=== PATIENT | female | born 1985 | race Caucasian/White ===

== ENCOUNTER → 2018-03-18 | Outpatient (CLI) | payer BC ==
[~2018-03-18] MED LIST: Acetaminophen PO; Benzocaine 60 ML TP; Ibuprofen PO; Lanolin TP; PREN-127 PO; TUCKS TP
[2018-03-18 10:39] LABS: PLATELET COUNT, AUTOMATED 226 K/uL (150-450)
== END ==
LOC: LAB 09:04
PROVIDERS: ATTEND Obstetrics & Gynecology
DX: Z34.91 Encounter for supervision of normal pregnancy, unspecified, first trimester (principal)
CPT/HCPCS: 36415; 81001; 85025; 86592; 86703; 86762; 86850; 86900; 86901; 87088; 87340

== ENCOUNTER → 2018-04-15 | Outpatient (CLI) | payer BC | LOC: LAB 14:50 | PROVIDERS: ATTEND Obstetrics & Gynecology | DX: Z34.91 Encounter for supervision of normal pregnancy, unspecified, first trimester (principal); Z11.3 Encounter for screening for infections with a predominantly sexual mode of transmission | CPT/HCPCS: 87491; 87591 ==

== ENCOUNTER → 2018-05-18 | Outpatient (CLI) | payer BC | LOC: LAB 13:50 | PROVIDERS: ATTEND Obstetrics & Gynecology | DX: R33.9 Retention of urine, unspecified (principal) | CPT/HCPCS: 81001; 87088 ==

== ENCOUNTER → 2018-07-04 | Outpatient (CLI) | payer BC ==
[~2018-07-04] MED LIST changes: +FLU60SYR36 IM
--- NOTE | 2018-07-04 13:13 | RADIOLOGY IMAGING REPORT ---
FACILITY: [facility] PATIENT NAME: Vanda Jackson : 1985 MR: [id number] V: [id number] EXAM DATE: ORDERING PHYSICIAN: DINAE BETTENCOURT TECHNOLOGIST: Location: [facility] [place] Patient: Vanda Jackson : 1985 Visit/Account:[id number] Date of Sevice: 07/04/2018 [facility] OB ANATOMICAL SURVEY HISTORY: anatomical [facility] OB ANATOMICAL SURVEY COMPARISON: None FINDINGS: Intrauterine gestations: 1 presentation: Vertex heart rate: 139 bpm Amniotic fluid volume: MATTIE 14.4 cm; Largest amniotic fluid pocket 4.3 cm Placenta: Fundal/anterior No placenta previa or retroplacental hemorrhage. Uterus: Gravid, otherwise normal Maternal adnexa: Negative Cervix: 4.1. Closed Gestational Parameters: BPD: 4.9 cm; 20 weeks/ 6 days HC: 18.1 cm; 20 weeks/ 4 days AC: 15.8 cm; 21 weeks/ 0 days FL: 3.2 cm; 20 weeks/ 0 days Average ultrasound age (AUA): 20 weeks/ 5 days Estimated weight (EFW): 358 grams +/- 53 grams. 41st percentile by LMP Anatomic Survey: Intracranial structures, 4-chamber heart, stomach, kidneys, urinary bladder, spine, 3-vessel cord and cord insertion are unremarkable. Two upper and two lower extremities visualized. IMPRESSION: IUP of 20 weeks five days. JAMEEL of 11/16/2018.. This correlates well with the LMP JAMEEL of 11/17/2018 Report Dictated By: Aj Wilde MD at 07/04/2018 1:04 PM Report E-Signed By: Aj Wilde MD at 07/04/2018 1:08 PM WSN:[email or web address]
== END ==
LOC: RAD 09:44
PROVIDERS: ATTEND Obstetrics & Gynecology
DX: Z34.02 Encounter for supervision of normal first pregnancy, second trimester (principal)

== ENCOUNTER → 2018-07-09 | Outpatient (CLI) | payer BC ==
[~2018-07-09] MED LIST changes: +HYDR30CR10 TP; +METH4TAB66 PO
== END ==
LOC: LAB 07-08 16:49
PROVIDERS: ATTEND Student in an Organized Health Care Education/Training Program
DX: Z34.90 Encounter for supervision of normal pregnancy, unspecified, unspecified trimester (principal); L29.9 Pruritus, unspecified; R21 Rash and other nonspecific skin eruption
CPT/HCPCS: 36415; 82040; 82239; 82247; 82310; 82374; 82435; 82565; 82947; 84075; 84132; 84155; 84295; 84450; 84460; 84520; 85027

== ENCOUNTER → 2018-08-25 | Outpatient (CLI) | payer BC ==
[2018-08-25 12:00] LABS: PLATELET COUNT, AUTOMATED 219 K/uL (150-450)
== END ==
LOC: LAB 10:59
PROVIDERS: ATTEND Student in an Organized Health Care Education/Training Program
DX: Z34.92 Encounter for supervision of normal pregnancy, unspecified, second trimester (principal)
CPT/HCPCS: 36415; 82950; 85025

== ENCOUNTER → 2018-09-09 | Outpatient (CLI) | payer BC | LOC: LAB 13:37 | PROVIDERS: ATTEND Advanced Practice Midwife | DX: Z20.828 Contact with and (suspected) exposure to other viral communicable diseases (principal) | CPT/HCPCS: 87502 ==

== ENCOUNTER → 2018-10-12 | Outpatient (CLI) | payer BC ==
[~2018-10-12] MED LIST changes: +DIPH0.5D12 IM
--- NOTE | 2018-10-12 14:09 | RADIOLOGY IMAGING REPORT ---
FACILITY: [facility] PATIENT NAME: Vanda Jackson : 1985 MR: [id number] V: [id number] EXAM DATE: ORDERING PHYSICIAN: DIANE BETTENCOURT TECHNOLOGIST: Location: [facility] Patient: Vanda Jackson : 1985 Visit/Account:[id number] Date of Sevice: 10/12/2018 EXAMINATION: Ultrasound transabdominal OB HISTORY: Size date discrepancy COMPARISON: July 04, 2018 TECHNIQUE: Transabdominal imaging was performed for assessment of the fetus and maternal pelvic structures. T ransvaginal imaging was not performed. FINDINGS: Placenta: Fundal and anterior without previa. Uterus: Gravid, otherwise normal Cervix: Not evaluated Maternal Ovaries: Not evaluated Maternal and other adnexa findings: Not evaluated Intrauterine gestations: One. presentation: Cephalic heart rate: at 117 bpm Amniotic fluid index: 10.89 cm Largest amniotic fluid pocket: 3.94 cm Gestational Parameters: BPD: 8.63 cm 34 weeks/ six days, 51% HC: 31.02 cm 34 weeks/ five days, 14% AC: 30.17 cm 34 weeks/ one days, 35% FL: 6.65 cm 34 weeks/ two days, 26% Average ultrasound age (AUA): 34 weeks/four days, JAMEEL 11/19/2018 Estimated gestational age by JAMEEL: 34 weeks/six days, JAMEEL 11/17/2018 Estimated weight (EFW): 2392 grams +/- 350 grams EFW for JAMEEL: 30 percentile The SD ratios of the umbilical cord ranged between 2.5 and 2.8 Anatomic Survey: Anatomic survey not performed IMPRESSION: Single viable fetus in cephalic presentation with an estimated gestational age by measur ements of 34 weeks and four days. Estimated gestational age by LMP is 34 weeks and six days. Report Dictated By: Adri Matias MD at 10/12/2018 1:55 PM Report E-Signed By: Adri Matias MD at 10/12/2018 2:04 PM WSN:[email or web address]
== END ==
LOC: RAD 12:55
PROVIDERS: ATTEND Obstetrics & Gynecology
DX: Z02.9 Encounter for administrative examinations, unspecified (principal)

== ENCOUNTER → 2018-10-25 | Outpatient (CLI) | payer BC | LOC: LAB 08:14 | PROVIDERS: ATTEND Advanced Practice Midwife | DX: Z36.85 Encounter for antenatal screening for Streptococcus B (principal) | CPT/HCPCS: 87081 ==

== ENCOUNTER → 2018-10-27 | Outpatient (CLI) | payer BC | LOC: LAB 10:51 | PROVIDERS: ATTEND Obstetrics & Gynecology | DX: Z34.93 Encounter for supervision of normal pregnancy, unspecified, third trimester (principal); L29.9 Pruritus, unspecified | CPT/HCPCS: 36415; 82040; 82239; 82247; 82310; 82374; 82435; 82565; 82947; 84075; 84132; 84155; 84295; 84450; 84460; 84520 ==

== ENCOUNTER → 2018-11-03 | Outpatient (CLI) | payer BC ==
--- NOTE | 2018-11-03 11:37 | RADIOLOGY IMAGING REPORT ---
FACILITY: [facility] [place] PATIENT NAME: Vanda Jackson : 1985 MR: [id number] V: [id number] EXAM DATE: ORDERING PHYSICIAN: DIANE BETTENCOURT TECHNOLOGIST: Location: [facility] Patient: Vanda Jackson : 1985 Visit/Account:[id number] Date of Sevice: 11/03/2018 OB LIMITED HISTORY: Size less than dates, eval MATTIE and EFW COMPARISON: 10/12/2018 FINDINGS: Intrauterine gestations: 1 presentation: Vertex heart rate: 129 bpm Amniotic fluid volume: MATTIE 14.9 cm; Largest amniotic fluid pocket 5.8 cm Placenta: Anterior fundal No placenta previa or retroplacental hemorrhage. Uterus: Gravid, otherwise normal Maternal adnexa: Negative Cervix: Closed Gestational Parameters: BPD: 9.2 cm; 37 weeks/ 1 days/50th percentile HC: 33.4 cm; 38 weeks/ 2 days/34th percentile AC: 31.3 cm; 35 weeks/ 2 days/5th percentile FL: 6.9 cm; 35 weeks/ 3 days/4th percentile Average ultrasound age (AUA): 36 weeks/ 4 days . Estimated weight (EFW): 2759 grams +/- 403 grams Fetus is in the 12th percentile based on LMP IMPRESSION: IUP of 36 weeks four days. JAMEEL of 11/27/2018. This is eight days behind the previous ultrasound JAMEEL c alculated at 11/19/2018 on the previous examination. Report Dictated By: Aj Wilde MD at 11/03/2018 11:25 AM Report E-Signed By: Aj Wilde MD at 11/03/2018 11:32 AM WSN:LEDY
== END ==
LOC: US 09:15
PROVIDERS: ATTEND Obstetrics & Gynecology
DX: O26.843 Uterine size-date discrepancy, third trimester (principal); Z3A.36 36 weeks gestation of pregnancy
CPT/HCPCS: 76815

== ENCOUNTER 2018-11-09 07:06 | Inpatient (IN) | payer BC ==
[~2018-11-09] VITALS: Ht 165.1 cm; Wt 67.1 kg
[~2018-11-09 07:06] MED LIST changes: -DIPH0.5D12 IM; +DIPH0.5S2 IM
[2018-11-09] MEDS ORDERED: FAMOTIDINE(*) 20MG/50ML PREMIX 50 ML IVPB PRN (07:17)
[2018-11-09] MEDS ORDERED: OXYTOCIN 30 UNIT/D5LR 500 ML 500 ML IV PRN (07:17)
[2018-11-09] MEDS ORDERED: DLR(*) 1000 ML BAG 1,000 ML IV SCH (07:17)
[2018-11-09] MEDS ORDERED: ceFAZolin(*) 2GM/D5W 50ML 50 ML IVPB PRN (07:17)
[2018-11-09] MEDS ORDERED: LR(*) 1000 ML BAG 1,000 ML IV PRN (07:17)
[2018-11-09] MEDS ORDERED: fentaNYL CITR 100 MCG/2 ML AMP IVP PRN (07:20)
[2018-11-09] MEDS ORDERED: LIDOCAINE 1% LOCAL 300 MG/30ML INJ PRN (07:20)
[2018-11-09] MEDS ORDERED: FLUSH 10 ML SYR IVP PRN (07:20)
[2018-11-09] MEDS ORDERED: LIDOCAINE/SOD BICARB 8.4% SYR SC PRN (07:20)
[2018-11-09] MEDS ORDERED: TERBUTALINE SULF 1 MG/ML VIAL SUBQ PRN (07:20)
[2018-11-09] MEDS ORDERED: METOCLOPRAMIDE 10 MG/2 ML SDV IVP PRN (07:20)
[2018-11-09 08:40] LABS: PLATELET COUNT, AUTOMATED 206 K/uL (150-450)
--- NOTE | 2018-11-09 09:01 | History & Physical ---
History of Present Illness Age of Patient: 33 : 3 Para or TPAL: 1 EDC per LMP: Nov 19, 2018 Chief Complaint Pt is a 33 Year old @ 38 6/7 by LMP and first trimester US with an JAMEEL of 11/19/18 here today for IOL for SGA fetus at 12%tile. She has had an uncomplicated thus far. She has been having contractions on and off for the past few weeks but this am they have become stronger and more regular. She reports good movement, no LOF or VB, but has noticed some bloody show since the cervical check in clinic on Wednesday. She denies LOCO, vision changes, or RUQ pain. Her Bandar is here and will be her support person. She plans for an unmedicated . History Patient's Blood Type: O Positive Rubella Status: Immune Group B Strep Screen: Negative Allergies: Coded Allergies: amoxicillin (Verified Allergy, Intermediate, 03/18/18) clavulanic acid (Verified Allergy, Intermediate, 03/18/18) cefaclor (Unverified Allergy, Unknown, unknown, 05/29/14) Social History: Denies ETOH, tobacco, or illicit drug use including marijuana Family History: Blood clots FATHER FH: Mgusa-Jaoritcty-Cvjrr syndrome BROTHER OR SISTER FH: asthma FATHER FH: cancer FATHER (liver) BROTHER OR SISTER (colon) FH: diabetes mellitus FATHER FH: hypertension FATHER Ulcerative colitis MOTHER Med Rec Home Meds Active Scripts Methylprednisolone (METHYLPREDNISOLONE) 4 Mg Tab.ds.pk, 4 MG PO DIRECTED, #1 PACK Prov:DIANE BETTENCOURT MD 07/29/18 Hydrocortisone 2.5 % 30 GM CREAM (Hydrocortisone 2.5 % 30 GM CREAM) 2.5 % Cream.appl, 30 GM TP BID for 15 Days, #1 GM 1 Refill Prov:DUSTIN RO DO 07/08/18 Reported Medications Vits W-Ca,Fe,Fa(<1MG) ( VITAMINS) Unknown Strength Tablet, PO DAILY, TAB 03/18/18 Review of Systems Constitutional: No Fever Neurological: No Syncope, No Dizziness Eyes: No Vision Change Cardiovascular: No Chest Pain Respiratory: No Shortness of Breath Gastrointestinal: No Nausea, No Vomiting, No Diarrhea, No Constipation Genitourinary: No Dysuria Musculoskeletal: Pain (mild uterine cramping) Psychiatric: No Depression, No Anxiety Exam General Exam Neuro: No Gross deficits; No Headache Eyes: Normal Extraocular Movement & Vison ENT: Normal Cardiovascular: Regular Rate and Rhythm Respiratory: No Respiratory Distress Abdomen: Gravid - Non-Tender, RUQ Non-Tender : Normal Musculoskeletal: No Weakness/Pain Extremities: No Cyanosis,Clubbing or Edema Integumentary: Skin Intact without Lesions or Rash Psychological: Alert & Oriented X3 Vaginal Discharge/Fluid?: Bloody Show Cervical Dialation: 2 Cervical Effacement (%): 70 Cervical Consistency: Moderate Cervical Position: Mid Station: 0 Presentation: Vertex Uterine Contractions(Q min): 4 Uterine Contraction Strength: Mild UC Resting Tone: Soft Fetus Feeling Movement?: Yes Estimated Weight(grams): 3000 Heart Tones: 125 Heart Tone Variabilty: Moderate FHT Accelerations: 15X15 FHT Decelerations: None Medical Decision Making Data Points Result Diagram: 11/09/18 0810 Assessment and Plan Hospital Day: 1 DAMAGE APPRAISER Assessment: Stable DAMAGE APPRAISER Plan: Routine Labor/Induct Care Problems: (1) Encounter for induction of labor Onset Date: ~ 11/09/2018 Status: Acute Assessment & Plan: SW is a 33 y.o. [id number] 38w06 wks with an Estimated Date of Delivery: 11/19/18 dated by LMP and first trimester US Labor state: IOL for SGA fetus at 12%tile, Discussed plan for induction with the CRB and low dose Pitocin. We reviewed the R/B/A and pt desires to continue to plan. [place] score is 7. Plan for CRB insertion with 80cc uterine balloon and 80cc vaginal balloon and then placed to tension on leg. Nurse instructed to place additional tension every hour and then replace to leg. Pitocin 2mu will be titrated every 30 minutes up to 14 mu per hour where it will remain until the CRB has fallen out. At that time we will consider AROM if needed for labor progression. Encouraged pt to use upright and ambulation positions to facilitate descent. well-being: Category I FHT: continuous monitoring for induction, as well as SGA fetus Maternal well-being: VSS, normotensive, afebrile, membranes presumed intact. PNL: GBS Neg, Type/Rh O+, rubella immune Pain Management: Plans for an unmedicated , considering tub if not able to tolerate pain Feed: Breast/ boy PPBCM: c/b: * SGA fetus 12%tile Anticipate labor progression, re-evaluate in 2-3 hours or prn (2) SGA (small for gestational age) Onset Date: ~ 11/03/2018 Status: Acute Assessment & Plan: IOL for planned for today ADOLPH SOTO CNM Nov 09, 2018 09:01
[2018-11-09] MEDS ORDERED: DIPH-740 PO (10:22)
[2018-11-09] MEDS ORDERED: ACET-1966 PO (10:23)
[2018-11-09 10:35] VITALS: BP 115/79; Ht 165.1 cm; Wt 67.1 kg
--- NOTE | 2018-11-09 12:26 | Labor Progress Note ---
Labor Subjective Progress Notes Subjective Pt is starting to feel more pressure in her pelvis and some lower back pain. She is tolerating the contractions well. She denies LOCO, vision changes, and RUQ pain. at bedside. Planning on walking in the [place] now. Feeling Movement?: Yes Vaginal Discharge/Fluid: Bloody Show, Clear Fluid, Moderate Amount Labor Pain: Moderate Neurological: No Headache Eyes: No Visual Disturbances Labor Objective Vital Signs Vital Signs Date Time Temp Pulse Resp B/P (MAP) Pulse Ox O2 Delivery O2 Flow Rate FiO2 11/09/18 10:35 97.2 80 16 115/79 (91) 98 Room Air Vaginal Discharge/Fluid?: Bloody Show, Clear Fluid, Moderate Amount Cervical Dialation: 3 Cervical Effacement (%): 70 Cervical Consistency: Soft Cervical Position: Anterior Station: 0 Presentation: Vertex Uterine Contractions(Q min): 2 Uterine Contraction Strength: Moderate UC Resting Tone: Soft Fetus Estimated Weight(grams): 3000 Heart Tones: 140 Heart Tone Variabilty: Moderate FHT Accelerations: Present, 15X15 FHT Decelerations: None FHT Category: I General Exam General Appearance: Alert/Awake/No Acute Distress ENT: Normal Cardiovascular: Normal Rhythm & Peripheral Pulses Respiratory: No Respiratory Distress Abdomen: Gravid - Non-Tender, RUQ Non-Tender : Normal Musculoskeletal: No Weakness/Pain Integumentary: Skin Intact without Lesions or Rash Psychological: Alert & Oriented X3, Appropriate Mood & Affect Other Result Diagram: 11/09/18 0810 Assessment and Plan Problems: (1) Encounter for induction of labor Onset Date: ~ 11/09/2018 Status: Acute Assessment & Plan: JACKIE is a 33 y.o. [id number] 38w06 wks with an Estimated Date of Delivery: 11/19/18 dated by LMP and first trimester US Labor state: IOL for SGA fetus at 12%tile. Early labor. Induction agent: Pitocin titration at 16mu/hr with good cervical change in 3 hours. Discussed R/B/A to AROM to progress labor. Pt desires AROM. Continue to encourage ambulation and upright positions to encourage descent. well-being: Category I FHT: continuous monitoring for induction, as well as SGA fetus Maternal well-being: VSS, normotensive, afebrile, AROM @12:08 for clear, modera te fluid PNL: GBS Neg, Type/Rh O+, rubella immune Pain Management: Plans for an unmedicated , considering tub if not able to tolerate pain. Up ambulating now and coping well with contractions Feed: Breast/ boy c/b: * SGA fetus 12%tile Anticipate labor progression to active labor, re-evaluate in 2-3 hours or prn (2) SGA (small for gestational age) Onset Date: ~ 11/03/2018 Status: Acute ADOLPH SOTO CNM Nov 09, 2018 12:26
[2018-11-09] MEDS ORDERED: LIDO/EPI 2% MPF 1:200,000 20ML EPI PRN (13:50)
[2018-11-09] MEDS ORDERED: FENTANYL/ROPIVACAINE 100 ML BAG EPI PRN (13:50)
[2018-11-09] MEDS ORDERED: LIDOCAINE/PF 2% 200MG/10ML AMP 200 MG/10 ML AMPUL EPI PRN (13:50)
[2018-11-09] MEDS ORDERED: BUPIVACAINE 0.25% MPF INJ EPI PRN (13:50)
[2018-11-09] MEDS ORDERED: fentaNYL CITR 100 MCG/2 ML AMP IT PRN (13:50)
[2018-11-09] MEDS ORDERED: BUPIVACAINE 0.5% INJ 30ML VIAL EPI PRN (13:50)
--- NOTE | 2018-11-09 14:37 | Labor Progress Note ---
Labor Subjective Progress Notes Subjective Pt is feeling a lot more intense pain during contractions. She is having a hard time coping and thinking about an epidural, but does not want IV pain meds. She feels the pain in her lower back and lower pelvis. She is interested in trying the tub before the epidural and see is this can help. She denies LOCO, vision changes, and RUQ pain. Feeling Movement?: Yes Vaginal Discharge/Fluid: Bloody Show, Clear Fluid Labor Pain: Severe Neurological: No Headache Eyes: No Visual Disturbances Labor Objective Vital Signs Vital Signs Date Time Temp Pulse Resp B/P (MAP) Pulse Ox O2 Delivery O2 Flow Rate FiO2 11/09/18 10:35 97.2 80 16 115/79 (91) 98 Room Air Vaginal Discharge/Fluid?: Bloody Show, Clear Fluid Cervical Dialation: 7 Cervical Effacement (%): 80 Cervical Consistency: Soft Cervical Position: Anterior Station: 0 Presentation: Vertex Uterine Contractions(Q min): 2 Uterine Contraction Strength: Strong UC Resting Tone: Soft Fetus Heart Tones: 140 General Exam General Appearance: Alert/Awake/No Acute Distress ENT: Normal Neck: No Masses Cardiovascular: Normal Rhythm & Peripheral Pulses Respiratory: No Respiratory Distress Abdomen: Gravid - Non-Tender, RUQ Non-Tender, Active Bowel Sounds : Normal Musculoskeletal: No Weakness/Pain Extremities: No Cyanosis,Clubbing or Edema Integumentary: Skin Intact without Lesions or Rash Psychological: Alert & Oriented X3, Appropriate Mood & Affect (tearful because of pain), Other Other Result Diagram: 11/09/18 0810 Assessment and Plan Problems: (1) Encounter for induction of labor Onset Date: ~ 11/09/2018 Status: Acute Assessment & Plan: JACKIE is a 33 y.o. [id number] 38w06 wks with an Estimated Date of Delivery: 11/19/18 dated by LMP and first trimester US Labor state: IOL for SGA fetus at 12%tile. Active labor. approaching transition quickly. Contractions are becoming very intense without much break and difficult to tolerate. Pitocin decreased and then discontinued while in tub. Adequate contraction pattern with rapid cervical change. Encourage hands and knees for comfort in bed after tub. well-being: Category I FHT: continuous monitoring for induction, as well as SGA fetus Maternal well-being: VSS, normotensive, afebrile, AROM @12:08 for clear, moderate fluid PNL: GBS Neg, Type/Rh O+, rubella immune Pain Management: Hydrotherapy: coping better in the tub, not asking for an epidural and does not have want IV pain meds Feed: Breast/ boy c/b: * SGA fetus 12%tile Anticipate , provider continuously at bedside for labor support (2) SGA (small for gestational age) Onset Date: ~ 11/03/2018 Status: Acute ADOLPH SOTO CNM Nov 09, 2018 14:37
--- NOTE | 2018-11-09 15:59 | OB Delivery Note ---
Delivery Note Vaginal Delivery Type: Spont. Vaginal Delivery Delivery Date: Nov 09, 2018 Delivery Time: 15:00 Estimated Gestational Age(wks): 38.6 Delivery Anesthesia: Other (hydrotherapy, position changes, and controlled breathing) Weight (gms): 2448 Apgars: 1 Minute, 5 Minute Repair Needed: Laceration, Vaginal, Labial, 2nd Degree Estimated Blood Loss: 300 Delivery Complications: Laceration Notes: 33 year old @ 38 6/7 here for IOL for SGA fetus at 12%tile Pt was admitted to the family care unit on 11/09/18 at 0700 with early labor. Cervical exam on admission was 2/70/0. Pitocin induction began at 0800 and was titrated up for an adequate contraction with cervical change.She had AROM on 11/09/18 at 1208 for clear moderate fluid. Pt was GBS negative. FHR was CAT I primarily throughout first stage. Pt utilized controlled breathing and hydrotherapy primarily for pain management. Pt was completely dilated on 11/09/18 at 1457 and pt began spontaneously pushing at that time. At 1500 pt had a NSVB of live male APGARS 8/8, 5lbs 6oz, 2448g. The head delivered spontaneously in the OA position and restituted DENA with no nuchal cord. The anterior shoulder was delivered a traumatically and the posterior shoulder followed. Body delivered easily. Face was wiped and then placed on the maternal abdomen. The was dried and stimulated and noted to have a spontaneous cry and spontaneous movement of all 4 extremities. Cord was clamped X 2 by CNM 2 minutes and cut by patient's spouse. Mother was in side lying position. At 1503 the placenta and membranes delivered Hernandez, spontaneously and intact with a 3 vessel cord after gentle downward traction. 30 units of Pitocin was placed in 500cc IV to firm the uterus and started immediately after placenta delivery. Upon inspection of the perineum it was found to be intact, but a small second degree vaginal laceration was noted. Because of continuous bright red bleeding in the vaginal vault Dr. West was called to assess for a possibly cervical laceration. It was found to be intact and most likely the vaginal laceration bleeding. Bilateral labia minora superficial lacerations were noted, but were hemostatic. The vaginal laceration was repaired by Dr West with 3.0 Vicryl in a running fashion and hemostasis was observed. EBL 300 with fundus firm with minimal bleeding. Mom and baby were left in stable condition. imitated with good success. "I personally examined the patient and there are no unintended foreign objects in the vagina, and all sponge, lap, and needle counts were correct. Martha Mercado CNM was present throughout the entire delivery as well as MARTHA Rivera CNM Nov 09, 2018 15:59
[2018-11-09] MEDS ORDERED: LANOLIN OINT 7 GM TUBE TP PRN (16:35)
[2018-11-09] MEDS ORDERED: ACETAMINOPHEN 325 MG TAB PO PRN (16:35)
[2018-11-09] MEDS ORDERED: APAP/HYDROCODONE 325/5 TAB PO PRN (16:35)
[2018-11-09] MEDS ORDERED: GLYCERIN/WITCH HAZEL LEAF 1 PK TP PRN (16:35)
[2018-11-09] MEDS ORDERED: HYDROCORTISONE 2.5% CR 30GM TB PR PRN (16:35)
[2018-11-09] MEDS ORDERED: MAGNESIUM HYDROXIDE* 30ML UDCP PO PRN (16:35)
[2018-11-09] MEDS: BENZOCAINE 20% 60 ML BTL TP PRN (16:54)
[2018-11-09] MEDS: IBUPROFEN 800 MG TAB PO SCH (16:54)
[2018-11-09 17:10] VITALS: BP 138/82
[2018-11-09] MEDS ORDERED: LIDOCAINE 1% LOCAL 300 MG/30ML 30 ML ONE (17:52)
[2018-11-09] MEDS ORDERED: LR(*) 1000 ML BAG 1,000 ML ONE (19:02)
[2018-11-09 19:15] VITALS: BP 107/63
[2018-11-09] MEDS: DOCUSATE CALCIUM 240 MG CAP PO SCH (20:49)
[2018-11-09 23:42] VITALS: BP 138/88
[2018-11-10] MEDS: IBUPROFEN 800 MG TAB PO SCH ×3 (01:06→17:10)
[2018-11-10 03:09] VITALS: BP 115/60
[2018-11-10 08:15] VITALS: BP 119/66
--- NOTE | 2018-11-10 08:16 | OB/GYN Progress Note ---
OB Subjective Progress Notes Subjective Doing well. Pain controlled with oral medications. Tolerating regular diet. Ambulating. Voiding. Normal lochia. No preeclampsia symptoms. OB Objective Physical Exam Vital Signs Date Time Temp Pulse Resp B/P (MAP) Pulse Ox O2 Delivery O2 Flow Rate FiO2 11/10/18 03:09 97.8 68 16 115/60 (78) Room Air 11/09/18 17:10 97 Intake and Output 11/10/18 07:00 Intake Total 1520 ml Balance 1520 ml Intake Oral 220 ml IV Total 1300 ml General Appearance: Alert/Awake/No Acute Distress Neurological: No Gross deficits Eyes: Normal Extraocular Movement & Vison Cardiovascular: Normal Rhythm & Peripheral Pulses, Regular Rate and Rhythm Respiratory: No Respiratory Distress Abdomen: Soft, Non-Tender, Non-Distended, Fundus Firm Extremities: No Cyanosis,Clubbing or Edema Integumentary: Skin Intact without Lesions or Rash Psychological: Alert & Oriented X3, Appropriate Mood & Affect Result Diagram: 11/10/18 0542 Assessment and Plan Problems: (1) examination following vaginal delivery Assessment & Plan: PPD#1. Meeting milestones. Desires discharge to home today. Discussed routine expectations. Questions answered. Follow up in clinic in 2wks for check. DIANE BETTENCOURT MD Nov 10, 2018 08:16
--- NOTE | 2018-11-10 08:17 | OB/GYN Discharge Summary ---
Discharge Summary Reason for Hosp/Final Diag: (1) examination following vaginal delivery Hospital Course & Plan: PPD#1. Meeting milestones. Desires discharge to home today. Discussed routine expectations. Questions answered. Follow up in clinic in 2wks for check. Lates Vital Signs Vital Signs Date Time Temp Pulse Resp B/P (MAP) Pulse Ox O2 Delivery O2 Flow Rate FiO2 11/10/18 03:09 97.8 68 16 115/60 (78) Room Air 11/09/18 17:10 97 Weight (Pounds): 148 Result Diagram: 11/10/18 0542 Condition: Improved Discharge: Home, Self Long Term Meds Reported Medications Acetaminophen (TYLENOL) 325 Mg Tablet, 650 MG PO PRN for pain, TAB 11/09/18 Diphenhydramine Hcl (BENADRYL) 25 Mg Capsule, 25 MG PO PRN for SLEEP, CAPSULE 11/09/18 Vits W-Ca,Fe,Fa(<1MG) ( VITAMINS) Unknown Strength Tablet, PO DAILY, TAB 03/18/18 Discontinued Scripts Methylprednisolone (METHYLPREDNISOLONE) 4 Mg Tab.ds.pk, 4 MG PO DIRECTED, #1 PACK Prov:DIANE BETTENCOURT MD 07/29/18 Hydrocortisone 2.5 % 30 GM CREAM (Hydrocortisone 2.5 % 30 GM CREAM) 2.5 % Cream.appl, 30 GM TP BID for 15 Days, #1 GM 1 Refill Prov:DUSTIN RO DO 07/08/18 Follow up Referrals: TELEPHONE INFORMATION SUPERVISOR - In Two Weeks @ [facility] with ADOLPH SOTO CNM Discharge Diet: As Tolerates Discharge Activity: Pelvic Rest DIANE BETTENCOURT MD Nov 10, 2018 08:17
[2018-11-10] MEDS: DOCUSATE CALCIUM 240 MG CAP PO SCH (09:24)
[2018-11-10 10:45] VITALS: BP 117/74
[2018-11-10 14:52] VITALS: BP 112/74
[2018-11-10] MEDS: BENZOCAINE 20% 60 ML BTL TP PRN (17:16)
== END 2018-11-10 17:30 | disposition home or self-care (01) | DRG 807 ==
LOC: OB 07:06
PROVIDERS: ADMIT Obstetrics & Gynecology; ATTEND Obstetrics & Gynecology
PROC: 10E0XZZ Delivery of Products of Conception, External Approach (ICD-10-PCS; principal; 2018-11-09)
PROC: 0KQM0ZZ Repair Perineum Muscle, Open Approach (ICD-10-PCS; 2018-11-09)
PROC: 10907ZC Drainage of Amniotic Fluid, Therapeutic from Products of Conception, Via Natural or Artificial Opening (ICD-10-PCS; 2018-11-09)
PROC: 3E033VJ Introduction of Other Hormone into Peripheral Vein, Percutaneous Approach (ICD-10-PCS; 2018-11-09)
DX: O36.5930 Maternal care for other known or suspected poor fetal growth, third trimester, not applicable or unspecified (principal); Z37.0 Single live birth; O70.1 Second degree perineal laceration during delivery; Z3A.38 38 weeks gestation of pregnancy
CPT/HCPCS: 36415; 85025; 85027; 86850; 86900; 86901; A4344; J2001; J2590; J7120